=== PATIENT | male | born 1940 | race Caucasian/White ===

== ENCOUNTER 2016-11-29 20:27 | Inpatient (IN) | payer OTHER ==
[~2016-11-29] VITALS: Ht 167.6 cm; Wt 87.9 kg
[~2016-11-29 20:27] MED LIST: ADVIL200 MG PO; ASPIRIN EC325 MG PO; ATACAND32 MG PO; CELECOXIB200 MG PO; ENDOCET 5-3251 EACH PO; IRON325 M1 PO
[2016-11-29 21:27] LABS: MCH 30.2 PG (29.0-34.0); MCHC 32.7 G/DL (30.0-36.0); MCV 92.3 FL (86-99); MEAN PLAT.VOLUME 11.3 uM^3 (9.0-12.4); PLATELET COUNT 400 K/uL (156-360); RBC DIS.WIDTH-CV 17.9 % (11.8-14.6); RBC DIS.WIDTH-SD 57.2 % (39-53); RED BLOOD COUNT 3.25 M/uL (4.00-5.50); WHITE BLOOD COUNT 9.2 K/uL (4.1-10.2)
[2016-11-29 21:35] LABS: CHLORIDE 105 mEq/L (99-109); POTASSIUM 4.5 mEq/L (3.7-5.4); SODIUM 137 mEq/L (136-147)
[2016-11-29 21:38] LABS: GLUCOSE 122 mg/dL (70-99)
[2016-11-29 21:39] LABS: ANION GAP 10 MEQ/L (2-14); TOTAL BILIRUBIN 0.8 mg/dL (0.0-1.0)
[2016-11-29 21:41] LABS: ALKALINE PHOSPHATASE 170 IU/L (3-129); GFR ESTIMATE (CALCULATED) > 59 mL/min/
[2016-11-29 21:42] LABS: UREA NITROGEN (BUN) 24 mg/dL (9-23)
[2016-11-29 21:45] LABS: LIPASE 12 U/L (1.0-51.0)
[2016-11-29 21:48] LABS: TROP-I INTERPRETATION NEGATIVE; TROPONIN-I < 0.01 ng/mL (0.0-0.30)
[2016-11-29 22:14] LABS: EOSINOPHIL (%) 0 % (0-5); HEMATOLOGY COMMENT 1 SMEAR COMPATIBLE; IMMATURE GRANULOCYTE (%) 1.7 % (0.0-0.7); IMMATURE GRANULOCYTE COUNT 0.2 K/uL; INSTRUMENT ABS NEUTROPHIL CT 8.1 K/uL; LYMPHOCYTE COUNT 0.3 K/uL (1.0-2.8); MONOCYTE (%) 6.9 % (3-12); MONOCYTE COUNT 0.6 K/uL (0-0.8); NEUTROPHIL (%) 88.2 % (45-76); NEUTROPHIL COUNT 8.1 K/uL (1.8-6.4); PLAT.SUFFICIENCY ADEQUATE; PLATELET CLUMPS PRESENT - PLATELET COUNT APPEARS ADQ.
[2016-11-29 23:16] LABS: ADD MIUA? YES; BILIRUBIN NEGATIVE; BLOOD NEGATIVE; COLOR YELLOW ((YELLOW)); GLUCOSE (STRIP) 50; KETONES NEGATIVE; LEUKOCYTES NEGATIVE; NITRITE NEGATIVE; PROTEIN (STRIP) NEGATIVE; SPECIFIC GRAVITY 1.024 (1.000-1.030); UROBILINOGEN 0.2 MG/DL (0.2-1.0)
[2016-11-29 23:19] LABS: BACTERIA RARE /HPF; EPITHELIAL CELLS RARE /HPF; MUCUS TRACE /LPF; RED BLOOD CELLS 0-5 /HPF (0-5); UCUL ADDED? NO; WHITE BLOOD CELLS 0-5 /HPF (0-5)
[2016-11-29] MEDS ORDERED: TPN IV (23:37)
[2016-11-29] MEDS ORDERED: DURAGESIC12 MCG TD (23:37)
[2016-11-29] MEDS ORDERED: SILVER SULFADIA50 GM TP (23:38)
[2016-11-29] MEDS ORDERED: NYSTATIN100000 UN1 PO (23:38)
[2016-11-29] MEDS ORDERED: [UNRECOGNIZED DRUG - OTHER] MM (23:38)
[2016-11-29] MEDS ORDERED: OXYCODONE H5 MG/5 ML PO (23:39)
[2016-11-29] MEDS ORDERED: MAGIC MOUTHWASH PO ×2 (23:39→23:40)
[2016-11-30 03:18] VITALS: BP 130/84
[2016-11-30 06:37] LABS: EOSINOPHIL (%) 0 % (0-5); HEMATOCRIT 27.2 % (38.0-50.0); IMMATURE GRANULOCYTE (%) 1.6 % (0.0-0.7); IMMATURE GRANULOCYTE COUNT 0.1 K/uL; INSTRUMENT ABS NEUTROPHIL CT 6.2 K/uL; LYMPHOCYTE COUNT 0.4 K/uL (1.0-2.8); MCHC 32.4 G/DL (30.0-36.0); MCV 92.8 FL (86-99); MEAN PLAT.VOLUME 11.9 uM^3 (9.0-12.4); MONOCYTE (%) 7.5 % (3-12); MONOCYTE COUNT 0.6 K/uL (0-0.8); NEUTROPHIL (%) 85.3 % (45-76); NEUTROPHIL COUNT 6.2 K/uL (1.8-6.4); PLATELET COUNT 381 K/uL (156-360); RBC DIS.WIDTH-SD 59.2 % (39-53); RED BLOOD COUNT 2.93 M/uL (4.00-5.50); WHITE BLOOD COUNT 7.3 K/uL (4.1-10.2)
[2016-11-30 07:46] VITALS: BP 145/76
[2016-11-30 07:51] LABS: ALKALINE PHOSPHATASE 146 IU/L (3-129); ANION GAP 9 MEQ/L (2-14); CHLORIDE 107 MEQ/L (99-109); GFR ESTIMATE (CALCULATED) > 59 mL/min/; GLUCOSE 110 mg/dL (70-99); POTASSIUM 4.2 MEQ/L (3.7-5.4); SAMPLE HEMOLYSIS CHECK 0; SAMPLE ICTERIC CHECK 0; SAMPLE LIPEMIA CHECK 0; SODIUM 138 MEQ/L (136-147); TOTAL BILIRUBIN 0.9 MG/DL (0.0-1.0); UREA NITROGEN (BUN) 20 mg/dL (9-23)
[2016-11-30 08:12] LABS: MAGNESIUM 1.7 mg/dl (1.3-2.7); PREALBUMIN 12.6 mg/dL (10-40); TRIGLYCERIDES 83 MG/DL (Normal: <150)
[2016-11-30 11:41] VITALS: BP 126/61
[2016-11-30 16:35] VITALS: BP 140/75
[2016-11-30 19:40] VITALS: BP 144/67
[2016-11-30 23:54] VITALS: BP 112/58
[2016-12-01 00:28] LABS: ADD MIUA? NO; BILIRUBIN NEGATIVE; BLOOD NEGATIVE; COLOR YELLOW ((YELLOW)); GLUCOSE (STRIP) 50; KETONES NEGATIVE; LEUKOCYTES NEGATIVE; NITRITE NEGATIVE; PROTEIN (STRIP) NEGATIVE; SPECIFIC GRAVITY 1.015 (1.000-1.030); UCUL ADDED? NO; UROBILINOGEN 0.2 MG/DL (0.2-1.0)
[2016-12-01 03:58] VITALS: BP 121/58
[2016-12-01 07:50] VITALS: BP 142/72
[2016-12-01 08:20] LABS: HEMATOCRIT 26.6 % (38.0-50.0); MCH 30.3 PG (29.0-34.0); MCHC 33.1 G/DL (30.0-36.0); MCV 91.7 FL (86-99); MEAN PLAT.VOLUME 11.8 uM^3 (9.0-12.4); PLATELET COUNT 393 K/uL (156-360); RBC DIS.WIDTH-CV 17.7 % (11.8-14.6); RBC DIS.WIDTH-SD 57.2 % (39-53); WHITE BLOOD COUNT 6.7 K/uL (4.1-10.2)
[2016-12-01 08:49] LABS: ANION GAP 9 MEQ/L (2-14); CHLORIDE 103 MEQ/L (99-109); GFR ESTIMATE (CALCULATED) > 59 mL/min/; POTASSIUM 3.8 MEQ/L (3.7-5.4); SAMPLE HEMOLYSIS CHECK 0; SAMPLE ICTERIC CHECK 0; SAMPLE LIPEMIA CHECK 0; SODIUM 137 MEQ/L (136-147); UREA NITROGEN (BUN) 15 mg/dL (9-23)
[2016-12-01 08:54] LABS: GLUCOSE 173 mg/dL (70-99)
[2016-12-01 11:28] VITALS: BP 141/67
[2016-12-01 13:04] VITALS: BP 135/72
[2016-12-01 19:30] VITALS: BP 139/89
[2016-12-01 23:32] VITALS: BP 130/62
[2016-12-02 03:56] VITALS: BP 137/71
[2016-12-02 08:46] LABS: HEMATOCRIT 27.6 % (38.0-50.0); MCV 91.1 FL (86-99); MEAN PLAT.VOLUME 12.2 uM^3 (9.0-12.4); PLATELET COUNT 436 K/uL (156-360); RBC DIS.WIDTH-CV 17.6 % (11.8-14.6); RBC DIS.WIDTH-SD 56.7 % (39-53); RED BLOOD COUNT 3.03 M/uL (4.00-5.50); WHITE BLOOD COUNT 7.4 K/uL (4.1-10.2)
[2016-12-02 09:24] LABS: ANION GAP 8 MEQ/L (2-14); CHLORIDE 102 MEQ/L (99-109); GFR ESTIMATE (CALCULATED) > 59 mL/min/; MAGNESIUM 1.8 mg/dl (1.3-2.7); POTASSIUM 4.1 MEQ/L (3.7-5.4); SAMPLE HEMOLYSIS CHECK 0; SAMPLE ICTERIC CHECK 0; SAMPLE LIPEMIA CHECK 0; SODIUM 137 MEQ/L (136-147); UREA NITROGEN (BUN) 10 mg/dL (9-23)
[2016-12-02 09:25] LABS: GLUCOSE 93 mg/dL (70-99)
[2016-12-02 09:38] VITALS: BP 135/77
[2016-12-02 12:00] VITALS: BP 136/77
[2016-12-02 16:10] VITALS: BP 129/62
[2016-12-02 20:00] VITALS: BP 130/61
[2016-12-03] VITALS: BP 135/64
[2016-12-03 03:45] VITALS: BP 112/55
[2016-12-03 07:02] VITALS: BP 124/60
[2016-12-03 07:33] LABS: HEMATOCRIT 27.2 % (38.0-50.0); MCH 29.9 PG (29.0-34.0); MCHC 33.1 G/DL (30.0-36.0); MCV 90.4 FL (86-99); MEAN PLAT.VOLUME 11.4 uM^3 (9.0-12.4); PLATELET COUNT 482 K/uL (156-360); RBC DIS.WIDTH-CV 17.2 % (11.8-14.6); RBC DIS.WIDTH-SD 54.9 % (39-53); RED BLOOD COUNT 3.01 M/uL (4.00-5.50); WHITE BLOOD COUNT 6.4 K/uL (4.1-10.2)
[2016-12-03 07:43] LABS: ANION GAP 11 MEQ/L (2-14); CHLORIDE 100 MEQ/L (99-109); MAGNESIUM 1.8 mg/dl (1.3-2.7); POTASSIUM 3.8 MEQ/L (3.7-5.4); SAMPLE HEMOLYSIS CHECK 0; SAMPLE ICTERIC CHECK 0; SAMPLE LIPEMIA CHECK 0; SODIUM 134 MEQ/L (136-147)
[2016-12-03 07:49] LABS: GFR ESTIMATE (CALCULATED) > 59 mL/min/; GLUCOSE 89 mg/dL (70-99); UREA NITROGEN (BUN) 9 mg/dL (9-23)
[2016-12-03 15:00] VITALS: BP 122/66
[2016-12-03 20:16] VITALS: BP 118/62
[2016-12-03 23:42] VITALS: BP 120/57
[2016-12-04 04:02] VITALS: BP 123/64
[2016-12-04 07:10] VITALS: BP 121/72
[2016-12-04 07:29] LABS: ANION GAP 10 MEQ/L (2-14); CHLORIDE 102 MEQ/L (99-109); MAGNESIUM 1.8 mg/dl (1.3-2.7); POTASSIUM 4.1 MEQ/L (3.7-5.4); SAMPLE HEMOLYSIS CHECK 0; SAMPLE ICTERIC CHECK 0; SAMPLE LIPEMIA CHECK 0; SODIUM 138 MEQ/L (136-147)
[2016-12-04 07:35] LABS: GFR ESTIMATE (CALCULATED) > 59 mL/min/; GLUCOSE 107 mg/dL (70-99); UREA NITROGEN (BUN) 7 mg/dL (9-23)
[2016-12-04 10:04] VITALS: BP 117/55
[2016-12-04 15:04] VITALS: BP 136/75
[2016-12-04 23:52] VITALS: BP 131/63
[2016-12-05 07:49] LABS: ANION GAP 8 MEQ/L (2-14); CHLORIDE 103 MEQ/L (99-109); GFR ESTIMATE (CALCULATED) > 59 mL/min/; GLUCOSE 93 mg/dL (70-99); MAGNESIUM 1.9 mg/dl (1.3-2.7); POTASSIUM 4.1 MEQ/L (3.7-5.4); SAMPLE HEMOLYSIS CHECK 0; SAMPLE ICTERIC CHECK 0; SAMPLE LIPEMIA CHECK 0; SODIUM 137 MEQ/L (136-147); UREA NITROGEN (BUN) 7 mg/dL (9-23)
[2016-12-05 07:50] VITALS: BP 121/60
[2016-12-05 16:20] VITALS: BP 116/60
[2016-12-06 00:13] VITALS: BP 129/59
[2016-12-06 07:05] LABS: HEMATOCRIT 27.6 % (38.0-50.0); MCH 30.4 PG (29.0-34.0); MCV 92.3 FL (86-99); MEAN PLAT.VOLUME 11.6 uM^3 (9.0-12.4); NRBC (%) 0.6 /100 WBC (0-0); PLATELET COUNT 517 K/uL (156-360); RBC DIS.WIDTH-CV 17.8 % (11.8-14.6); RBC DIS.WIDTH-SD 58.4 % (39-53); RED BLOOD COUNT 2.99 M/uL (4.00-5.50); WHITE BLOOD COUNT 6.9 K/uL (4.1-10.2)
[2016-12-06 07:35] LABS: ANION GAP 10 MEQ/L (2-14); CHLORIDE 103 MEQ/L (99-109); GFR ESTIMATE (CALCULATED) > 59 mL/min/; GLUCOSE 94 mg/dL (70-99); POTASSIUM 3.8 MEQ/L (3.7-5.4); SAMPLE HEMOLYSIS CHECK 0; SAMPLE ICTERIC CHECK 0; SAMPLE LIPEMIA CHECK 0; SODIUM 141 MEQ/L (136-147); UREA NITROGEN (BUN) 6 mg/dL (9-23)
[2016-12-06 07:46] VITALS: BP 128/66
[2016-12-06 16:56] VITALS: BP 122/78
[2016-12-06 23:22] VITALS: BP 122/71
[2016-12-07 07:26] LABS: MCH 28.9 PG (29.0-34.0); MCHC 31.4 G/DL (30.0-36.0); MCV 92.1 FL (86-99); MEAN PLAT.VOLUME 11.3 uM^3 (9.0-12.4); NRBC (%) 0.8 /100 WBC (0-0); PLATELET COUNT 530 K/uL (156-360); RBC DIS.WIDTH-CV 17.6 % (11.8-14.6); RBC DIS.WIDTH-SD 58.6 % (39-53); RED BLOOD COUNT 3.15 M/uL (4.00-5.50); WHITE BLOOD COUNT 6.4 K/uL (4.1-10.2)
[2016-12-07 07:42] LABS: ALKALINE PHOSPHATASE 98 IU/L (3-129); ANION GAP 9 MEQ/L (2-14); CHLORIDE 103 MEQ/L (99-109); GFR ESTIMATE (CALCULATED) > 59 mL/min/; GLUCOSE 90 mg/dL (70-99); POTASSIUM 4.4 MEQ/L (3.7-5.4); SAMPLE HEMOLYSIS CHECK 0; SAMPLE ICTERIC CHECK 0; SAMPLE LIPEMIA CHECK 0; SODIUM 141 MEQ/L (136-147); TOTAL BILIRUBIN 0.5 MG/DL (0.0-1.0); UREA NITROGEN (BUN) 6 mg/dL (9-23)
[2016-12-07 07:48] VITALS: BP 129/66
[2016-12-07 08:07] LABS: ABS NEUTROPHIL COUNT 4.2; ANISOCYTOSIS 1+; ATYPICAL LYMPHOCYTE 2.6 %; BAND NEUTROPHILS 2.6 % (0-8.0); BASOPHILS 1.8 %; EOSINOPHIL ABS CT 0; INSTRUMENT ABS NEUTROPHIL CT 3.8 K/uL; LYMPHOCYTES 9.6 % (15.0-45.0); METAMYELOCYTES 1.8 %; MICROCYTOSIS 2+; MYELOCYTES 2.6 %; NUCLEATED RBC'S 1.8; OVALOCYTES 1+; PLAT.SUFFICIENCY INCREASED; POLYCHROMASIA 1+; SEG.NEUTROPHILS 63.2 % (46.0-76.0)
[2016-12-08 00:09] VITALS: BP 137/70
[2016-12-08 07:42] VITALS: BP 151/67
[2016-12-08] MEDS ORDERED: ROCEPHIN 2 GM VI2 GM IV (09:34)
== END 2016-12-08 11:44 | disposition home health service (06) | DRG 315 ==
LOC: EME → EDBD 20:27 → EME 20:27 → EDOF 11-30 00:59 → 3EAST 11-30 00:59
PROVIDERS: Emergency Medicine; Hospitalist; Internal Medicine; Physician Assistant; Physician Assistant Medical
PROC: 3E0436Z Introduction of Nutritional Substance into Central Vein, Percutaneous Approach (ICD-10-PCS; principal; 2016-11-30)
PROC: 02PY33Z Removal of Infusion Device from Great Vessel, Percutaneous Approach (ICD-10-PCS; 2016-12-01)
DX: T80.211A Bloodstream infection due to central venous catheter, initial encounter (principal); B95.61 Methicillin susceptible Staphylococcus aureus infection as the cause of diseases classified elsewhere; C09.9 Malignant neoplasm of tonsil, unspecified; E44.0 Moderate protein-calorie malnutrition; R13.10 Dysphagia, unspecified; R74.8 Abnormal levels of other serum enzymes; I10 Essential (primary) hypertension; D64.9 Anemia, unspecified; R53.1 Weakness; K59.00 Constipation, unspecified; J61 Pneumoconiosis due to asbestos and other mineral fibers; Z96.652 Presence of left artificial knee joint; Z87.891 Personal history of nicotine dependence; Z68.35 Body mass index [BMI] 35.0-35.9, adult
CPT/HCPCS: 71010; 71250; 74176; 76937; 80048; 80053; 81003; 83605; 83690; 83735; 84100; 84134; 84478; 84484; 84630 90; 85025; 85027; 87040; 87077; 87147; 87186; 87801; 93005; 93306; 97530 GP; 99281; 99284; J0690; J0696; J1644; J2270; J2543; J7030; J7050; J7120